=== PATIENT | male | born 1965 | race Caucasian/White ===

== ENCOUNTER 2016-05-28 10:16 | Inpatient (IN) | payer OTHER ==
--- NOTE | ~2016-05-28 | PN ---
Unit #: [id number] #: [id number] Patient: SADI GILLILAND [id number] [facility] [address] [place] [address] [id number] MR#: [id number] NAME: SADI GILLILAND. ROOM: P212 Age: 50 Sex: M Admission Date: 05/28/2016 : 1965 Attending Physician: Moises Thomas M.D. Admitting Physician: Moises Thomas M.D. Primary Care Physician: Primary Care Physician Loli ORO NOTES DATE OF SERVICE: 05/29/2016 SUBJECTIVE Mr. Gilliland is a 50-year-old white male, who was seen today and chart was reviewed, and case was discussed with the staff. He has been anxious, withdrawn, and rather seclusive to himself. Meanwhile, he has been cooperative with treatment recommendations and has been taking the medications and tolerating them fairly well with no reported side effects. MENTAL STATUS EXAMINATION Middle-aged white male, who was casually dressed with fair personal hygiene, appears to be in acute distress or discomfort. He was awake and alert on interaction with intact orientation. His mood was anxious with a congruent affect. His speech was slow and goal directed. He denies any suicidal or homicidal ideation and also denies any auditory or visual hallucinations. His insight and judgment remain slightly impaired. TREATMENT PLAN 1. We will continue him on his current medications and treatment protocol. We will monitor his response to the medications and make further adjustments as needed. 2. We will continue to follow up. Dictated by... Kathryn Kelley/richard TD: 05/30/2016 06:52 JOB #: [id number] [facility] PROGRESS NOTES X Moises Thomas MD PROGRESS NOTE
--- NOTE | ~2016-05-28 | HP ---
Unit #: [id number] #: [id number] Patient: SADI GOLDSMITH [id number] [place] [address] [id number] MR#: [id number] NAME: SADI GOLDSMITH. ROOM: P212 Age: 50 Sex: M Admission Date: 05/28/2016 : 1965 Attending Physician: Moises Thomas M.D. Admitting Physician: Moises Thomas M.D. Primary Care Physician: Primary Care Physician No HISTORY AND PHYSICAL HISTORY OF PRESENT ILLNESS Sadi is a 50-year-old male admitted 05/28/[address] [place] [address] for detox from heroin. PAST MEDICAL HISTORY Gastroesophageal reflux disease. PAST SURGICAL HISTORY Surgical repair of a ruptured disc. SOCIAL HISTORY He smokes one-half packs of cigarettes daily. No alcohol use. He does report daily IV heroin use. He is currently and living with his friends. FAMILY HISTORY Noncontributory. REVIEW OF SYSTEMS CONSTITUTIONAL: No fever or chills. HEENT: Denies any sore throat, ear pain or runny nose. CARDIOVASCULAR: Denies chest pain, irregular heart rhythm or palpitations. CHEST: Denies shortness of breath or cough. No hemoptysis. GASTROINTESTINAL: Denies nausea, vomiting, diarrhea or chronic constipation. ENDOCRINE: Denies history of increased thirst or urination. No recent significant weight loss or gain. GENITOURINARY: Denies dysuria, frequency, or hematuria. SKIN: Denies any rashes. HEMATOLOGIC: Denies history of increased bleeding or bruising. MUSCULOSKELETAL: Denies any hot, swollen joints. No generalized muscle pain. NEUROLOGIC: Denies problems with vision or speech. No frequent, severe headaches. No numbness, tingling or weakness in any extremities. Denies loss of bladder or bowel control. CURRENT MEDICATIONS 1. Celexa 2. Seroquel 3. Requip 4. Omeprazole Unit #: [id number] #: [id number] Patient: SADI GOLDSMITH ALLERGIES No known drug allergies. PHYSICAL EXAMINATION GENERAL: Alert, oriented, in no acute distress. VITAL SIGNS: Blood pressure 139/90, heart rate 92, respirations 16, temperature 98.2. HEIGHT: 6 foot 4 inches. WEIGHT: 220 pounds. SKIN: Warm and dry without rash or lesion. HEENT: Normocephalic. TMs not viewed. Oral and nasal passages clear. Conjunctivae clear. PERRLA. EOMs intact. NECK: Supple without lymphadenopathy or thyromegaly. HEART: Regular rate and rhythm without murmur. LUNGS: Clear. ABDOMEN: Soft, nontender, without masses or hepatosplenomegaly. : Not done. EXTREMITIES: No evidence of cyanosis, clubbing or edema. Moves all without focal deficit. NEUROLOGICAL: Grossly within normal limits. Cranial Nerves: II: Visual pascual are intact. III, IV AND : Extraocular movements are intact. Pupils are equal, round and reactive to light. V: Facial sensation is grossly normal. VII: Facial movements and expression are normal. VIII: Auditory acuity grossly intact. IX, X: Uvula is midline. Phonation is normal. XI: Patient shrugs shoulders and turns head normally. XII: Tongue protrudes in the midline. Sensory and Motor Function: Sensory and motor sensation is grossly normal. Motor: moves all extremities well. Coordination: Gait is normal. Deep Tendon Reflexes: Intact. IMPRESSION 1. Psychiatric admission. 2. Gastroesophageal reflux disease. RECOMMENDATIONS Psychiatric, per psychiatrist. MEDICAL: I see no contraindications to participating in facility's activities. MEDICAL PROGNOSIS Good. MEDICAL CONDITION Stable. Dictated by..Bernadette Silva/madonna TD: 05/29/2016 00:05 Unit #: [id number] #: [id number] Patient: SADI GOLDSMITH JOB #: [id number] HISTORY AND PHYSICAL X BEN MEJÍA APRN X HISTORY AND PHYSICAL
--- NOTE | ~2016-05-28 | DS ---
Unit #: [id number] #: [id number] Patient: [facility] [id number] [facility] [address] [place] [address] [id number] MR#: [id number] NAME: SADI GILLILAND. ROOM: [facility] Age: 50 Sex: M Admission Date: 05/28/2016 : 1965 Discharge Date: 05/30/2016 Attending Physician: Moises Thomas M.D. Primary Care Physician: Primary Care Physician No DISCHARGE SUMMARY IDENTIFYING DATA Mr. Gilliland is a 50-year-old single white male, who was self-referred to the hospital. DISCHARGE DIAGNOSES Psychiatric: Opioid dependence, moderate and acute withdrawal; opioid-induced mood disorder. Medical: None. Stressors: Moderate psychosocial stressors. HISTORY OF PRESENT ILLNESS Please see initial psychiatric evaluation for details. PAST PSYCHIATRIC HISTORY Please see initial psychiatric evaluation for details. PAST MEDICAL HISTORY Please see initial psychiatric evaluation for details. HOSPITAL COURSE The patient was admitted to the adult chemical dependency and psychiatric unit at [facility] and was oriented to the hospital environment. Routine p.r.n. medications were initiated, and he was started back on his home medications and detox protocol was initiated; however, soon afterwards, the patient stated that he has an appointment with Suboxone doctor on [facility] and that he does not want to detox anymore and feels that he was just to be manipulative when he came to the hospital and was just looking to be here for a couple of days until his appointment with [facility] and was not really motivated towards sobriety and was wanting to leave and was denying any suicidal ideations, intent, or plan and as such, it was decided that he will be discharged home and will continue treatment on an outpatient basis. DISCHARGE MEDICATIONS None. DISCHARGE CONDITION Stable. PROGNOSIS Fair. Dictated by... Unit #: [id number] #: [id number] Patient: SADI GILLILAND Kathryn Kelley/richard TD: 05/30/2016 07:48 JOB #: [id number] DISCHARGE SUMMARY X Moises Thomas MD X DISCHARGE SUMMARY
--- NOTE | ~2016-05-28 | PA ---
Unit #: [id number] #: [id number] Patient: SADI GILLILAND [id number] [facility] [address] [place] [address] [id number] MR#: [id number] NAME: SADI GILLILAND ROOM: P212 Age: 50 Sex: M Admission Date: 05/28/2016 : 1965 Date of Assessment: 05/28/2016 Attending Physician: Moises Thomas M.D. Admitting Physician: Moises Thomas M.D. Primary Care Physician: Primary Care Physician No PSYCHIATRIC ASSESSMENT DATE OF SERVICE 05/28/2016. IDENTIFYING DATA Mr. Gilliland is a 50-year-old white male, who is a resident of [facility] and was self-referred to the hospital on a voluntary basis. CHIEF COMPLAINT "I'm here for my heroin addiction." HISTORY OF PRESENT ILLNESS Mr. Gilliland is a 50-year-old white male, who was self-referred to the hospital. Upon presentation, he stated that he wants to get detox from heroin and "it is killing me, I have a lot of issues in my back. He has depression, I have no money and no place to live. I am getting to [facility] for [facility]. I have going to be given the way and I cannot live like this. I used maybe a gram a day IV or by snorting it and I have been using someone for about 5 or 6 months for a little while. I was sober for about 5 months before a relapse. I went to [facility] and rehab and I am relapsed because I started to have back pain. I quit taking the Suboxone and try to do it on my own and that did not work the last time. I used this last night and I'm started to having stomach issues and in the morning, I'm feeling really bad, my body aches and cannot sleep and I'm get about 3 or 4 hours of sleep at night. My appetite is if I might eat about once a day. I have had seizures before when I tried to come off in the past. I'm not really wanted to kill myself, but I don't feel to or just starting, that I'm going to if I don't get help." He does report increasing depression, anxiety, feelings of hopelessness, and helplessness, and as such, recommendation for inpatient level of care was made. SUBSTANCE ABUSE HISTORY The patient reports opioids to be his drug of choice and has been using prescribed medications. More recently, he has been on a binge of heroin. He denies any other drug abuse. PAST PSYCHIATRIC HISTORY The patient has not had any prior inpatient or outpatient chemical dependency treatment. Review of the medical records indicate that currently is not active in treatment program. PAST MEDICAL HISTORY Unit #: [id number] #: [id number] Patient: SADI GILLILAND Chronic back pain and gastroesophageal reflux disease. ALLERGIES No known medication allergies. PERSONAL AND SOCIAL HISTORY A 50-year-old white male, who reports that he is single, unemployed, and has poor social support system. MENTAL STATUS EXAMINATION Young white male, who was casually dressed with fair personal hygiene, appears to be in no acute distress or discomfort. He was awake and alert on interaction with intact orientation to time, place, and person. His mood was anxious and depressed with a congruent affect. His speech was slow and restricted in content. His thought processes were disorganized with some looseness of association and suicidal ideations. His insight and judgment remain significantly impaired. DIAGNOSTIC IMPRESSION Psychiatric: Opioid dependence, moderate and acute withdrawals; opioid-induced mood disorder. Medical: Chronic back pain, history of withdrawal seizures, gastroesophageal reflux disease. Stressors: Moderate psychosocial stressors. TREATMENT PLAN 1. The patient has presented with history of substance abuse and mood disorder, and has been decompensating and will need inpatient hospitalization for detoxification, safety, and stabilization. We will start him on detox protocol. We will closely monitor for any worsening withdrawal symptoms. 2. Supportive therapy was provided to the patient. 3. Safe, structured, and nourishing environment will be provided. ESTIMATED LENGTH OF STAY 5 to 7 days. ABILITY TO HELP SELF Limited. WILLINGNESS TO HELP SELF The patient appears to be willing to help self. STRENGTHS 1. Communicative. 2. Cooperative. PROBLEMS 1. Chronic dysphoric symptoms. 2. Chronic chemical dependency. 3. Poor social support system. DISCHARGE CRITERIA This will be contingent upon the patient's ability to go through detox without having any significant withdrawal symptoms as well as ability to stay safe to himself, particularly after discharge from the hospital. Dictated by... Unit #: [id number] #: [id number] Patient: SADI GILLILAND M.D. IAA/richard TD: 05/29/2016 06:58 JOB #: [id number] PSYCHIATRIC ASSESSMENT X Moises Thomas MD PSYCHIATRIC ASSESSMENT
[~2016-05-28 10:16] MED LIST: ACETAMINOPHEN; ADVIL200 M2; FLEXERIL PO; FOLIC ACID; LISINOPRIL PO; MEDROL PO; NEURONTIN600 MG; SKELAXIN PO; ULTRAM PO
[2016-05-29 09:25] LABS: BASOPHIL% 0.7 % (0-2.5); EOSINOPHIL# 0.2 X10e3 (0-0.7); EOSINOPHIL% 3.6 % (0.0-7.0); HEMATOCRIT 38.6 % (38.0-50.0); HEMOGLOBIN 13.1 gm/dL (13.0-16.0); LYMPHOCYTE# 2.6 X10e3 (1.0-3.5); LYMPHOCYTE% 43.7 % (17.0-45.0); MEAN CELL VOLUME 89.9 FL (83-96); MEAN CORPUSCULAR HEMOGLOBIN 30.5 PG (28-34); MEAN CORPUSCULAR HGB CONC 33.9 g/dL (30-36); MEAN PLATELET VOLUME 8.3 FL (6.5-11.5); MONOCYTE# 0.7 X10e3 (0-1.0); MONOCYTE% 11.3 % (3.0-12.0); NEUTROPHIL# 2.4 X10e3 (1.5-7.1); NEUTROPHIL% 40.7 % (40-75); PLATELET COUNT 158 X10e3 (140-420); RED BLOOD COUNT 4.29 X10e (3.90-5.60); RED CELL DISTRIBUTION WIDTH 14.2 % (11.0-15.5); WHITE BLOOD COUNT 5.8 X10e3 (4.0-10.5)
[2016-05-29 09:26] LABS: URINE APPEARANCE CLEAR; URINE BILIRUBIN NEG (NEG); URINE BLOOD NEG (NEG); URINE COLOR YELLOW; URINE GLUCOSE NEG (NEG); URINE KETONE NEG (NEG); URINE LEUKOCYTE ESTERASE NEG (NEG); URINE NITRATE NEG (NEG); URINE PH 7.5 (5-8); URINE PROTEIN NEG (NEG); URINE SPECIFIC GRAVITY 1.009 (1.003-1.035); URINE UROBILINOGEN 0.2 MG/DL (NEG)
[2016-05-29 09:28] LABS: DIFF IND NO
[2016-05-29 09:47] LABS: THYROID STIMULATING HORMONE 0.12 uIU/ml (0.34-5.60)
[2016-05-29 09:55] LABS: FREE THYROXIN (T4) 0.93 ng/dL (0.58-1.64)
[2016-05-29 10:02] LABS: ALBUMIN SERUM 3.3 g/dL (3.5-5.0); ALKALINE PHOSPHATASE 78 U/L (32-92); ALT (SGPT) 46 U/L (10-40); AST (SGOT) 45 U/L (10-42); BLOOD UREA NITROGEN 8 mg/dL (9-23); BUN/CREATININE RATIO 13.33; CALCIUM SERUM 8.8 mg/dL (8.4-10.2); CARBON DIOXIDE 26 mmol/L (22-31); CHLORIDE 109 mmol/L (100-111); CREATININE SERUM 0.6 mg/dL (0.6-1.4); GLOM FILT RATE Estimated ABOVE60 mL/min (>60); GLUCOSE FASTING 95 mg/dL (70-110); POTASSIUM 3.6 mmol/L (3.5-5.1); PROTEIN TOTAL SERUM 6.8 g/dL (6.0-8.3); SODIUM 141 mmol/L (135-145)
[2016-05-29 10:11] LABS: AMPHETAMINE NEG (NEG); BARBITURATES NEG (NEG); BENZODIAZEPINES NEG (NEG); COCAINE NEG (NEG); MARIJUANA NEG (NEG); OPIATES POS (NEG); TRICYCLIC ANTIDEPRESSANTS NEG (NEG); U METHADONE NEG (NEG)
== END 2016-05-30 12:15 | disposition home or self-care (01) | DRG 897 ==
LOC: P2S 10:16 → POF 05-29 14:06 → P2S 05-29 14:09
PROVIDERS: Psychiatry & Neurology Psychiatry
PROC: HZ2ZZZZ Detoxification Services for Substance Abuse Treatment (ICD-10-PCS; principal; 2016-05-28)
DX: F11.23 Opioid dependence with withdrawal (principal); F11.24 Opioid dependence with opioid-induced mood disorder; G89.29 Other chronic pain; M54.9 Dorsalgia, unspecified; K21.9 Gastro-esophageal reflux disease without esophagitis
CPT/HCPCS: 80053; 80307; 81003; 84439; 84443; 85025; 86592